=== PATIENT | female | born 1985 | race Caucasian/White ===

== ENCOUNTER 2018-03-16 12:01 | Emergency (ER) | payer OTHER ==
[2018-03-16 12:26] VITALS: BP 163/93
--- NOTE | 2018-03-16 12:37 | UC ---
Lower Extremity/Ankle HPI - HPI Summary HPI Summary: 32 yo c/o right foot pain that started a couple of weeks ago with shooting pain from heel, worse with first step in the morning and after sitting for a while. Patient bought new shoes recently for plantar fasciitis, with more support, and states the heel pain is almost gone, but started having pain pain on the top of the foot near the big toe. Patient has taken ibuprofen, which has given some pain relief - History of Current Complaint Chief Complaint: UCLowerExtremity Stated Complaint: FOOT PAIN Time Seen by Provider: 03/16/18 12:10 Hx Obtained From: Patient Hx Last Menstrual Period: 02/21/18 ?: No Onset/Duration: Sudden Onset, Lasting Days Severity Initially: Moderate Severity Currently: Mild Pain Intensity: 2 Aggravating Factor(s): Standing, Ambulation Alleviating Factor(s): Rest, OTC Meds Able to Bear Weight: Yes - Risk Factors Gout Risk Factors: Negative DVT Risk Factors: Negative Septic Arthritis Risk Factor: Negative - Allergies/Home Medications Allergies/Adverse Reactions: Allergies Allergy/AdvReac Type Severity Reaction Status Date / Time No Known Allergies Allergy Verified 03/16/18 12:16 Home Medications: Home Medications Ibuprofen 1,000 mg PO DAILY PRN 03/16/18 [History Confirmed 03/16/18] PMH/Surg Hx/FS Hx/Imm Hx Previously Healthy: Yes - Surgical History Surgical History: Yes Surgery Procedure, Year, and Place: gallbladder removal- 2003 - Family History Known Family History: Positive: None - Social History Alcohol Use: Rare Substance Use Type: None Smoking Status (MU): Never Smoked Tobacco Review of Systems Constitutional: Negative Skin: Negative Musculoskeletal: Arthralgia, Myalgia All Other Systems Reviewed And Are Negative: Yes Physical Exam - Summary Physical Exam Summary: tenderness along posterior aspect of left calcaneus. Tender along tendon of extensor of the big toe. No soft tissue swelling, no bruising. [place] negative. Triage Information Reviewed: Yes Appearance: Well-Appearing, No Pain Distress, Obese Vital Signs: Initial Vital Signs Temp 98.3 F 03/16/18 12:18 Pulse 87 03/16/18 12:18 Resp 20 03/16/18 12:18 BP 163/93 03/16/18 12:18 Pulse Ox 100 03/16/18 12:18 Vital Signs Reviewed: Yes Eyes: Positive: Conjunctiva Clear ENT: Positive: Hearing grossly normal Neck: Positive: Supple, Nontender Respiratory: Positive: Chest non-tender Cardiovascular: Positive: Pulses Normal, Brisk Capillary Refill Abdomen Description: Positive: Nontender Musculoskeletal: Positive: Strength Intact, ROM Intact, No Edema Lower Extremity Course/Dx - Course Course Of Treatment: patient with tenderness along extensor tendon of first toe on left foot and tenderness along posterior calcaneal aspect 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 Advised to wear closed shoes with heel cup and continue with RICE; exercises for tendinitis /plantar fasciitis given. f/u with primary care in one week, f/u blood pressure readings. - Differential Dx/Diagnosis Provider Diagnoses: elevated BP without history of HTN. Calcaneal apophisitis. Tendinitis Discharge - Sign-Out/Discharge Documenting (check all that apply): Patient Departure All imaging exams completed and their final reports reviewed: No Studies - Discharge Plan Condition: Stable Disposition: HOME Patient Education Materials: Plantar Fasciitis Exercises (GEN), Plantar Fasciitis (ED), Tendinitis (ED) Referrals: No Primary Care Phys,NOPCP [Primary Care Provider] - [facility] [place] [facility] [Outside] - Billing Disposition and Condition Condition: STABLE Disposition: Home
== END 2018-03-16 12:50 | disposition home or self-care (01) ==
LOC: UCEAST 12:01
DX: M92.8 Other specified juvenile osteochondrosis (principal); M77.52 Other enthesopathy of left foot and ankle; R03.0 Elevated blood-pressure reading, without diagnosis of hypertension
CPT/HCPCS: 99201; G0463

== ENCOUNTER 2019-04-15 14:40 | Emergency (ER) | payer OTHER ==
[2019-04-15 15:57] VITALS: BP 158/85
--- NOTE | 2019-04-15 16:10 | UC ---
Throat Pain/Nasal Darryl HPI - HPI Summary HPI Summary: Patient is a 33-year-old female presenting with sore throat and general cold symptoms 2 days. Patient states cold symptoms have mostly resolved but her sore throat remains. Notes painful anterior cervical nodes. Notes painful swallowing. Denies nasal congestion, cough, ear pain. Denies shortness breath and wheezing. Denies fever and chills. Denies nausea, vomiting, diarrhea. - History of Current Complaint Chief Complaint: UCRespiratory Stated Complaint: SORE THROAT Hx Obtained From: Patient Hx Last Menstrual Period: 2 weeks ago Onset/Duration: Sudden Onset Severity: Mild Pain Intensity: 3 Pain Scale Used: 0-10 Numeric - Allergies/Home Medications Allergies/Adverse Reactions: Allergies Allergy/AdvReac Type Severity Reaction Status Date / Time No Known Allergies Allergy Verified 04/15/19 15:57 Home Medications: Home Medications Control* 1 tab PO DAILY 04/15/19 [History Confirmed 04/15/19] D-Methorphan/PE/Acetaminophen [Vicks Dayquil Liquicaps] 2 each PO ONCE PRN 04/15 [History Confirmed 04/15/19] Dm/PE/Acetaminophen/Chlorphenr [[place] Plus Flu Tab Eff] 1 each PO ONCE PRN 04/15/19 [History Confirmed 04/15/19] PMH/Surg Hx/FS Hx/Imm Hx - Surgical History Surgical History: Yes Surgery Procedure, Year, and Place: gallbladder removal- 2003 - Family History Known Family History: Positive: None, Non-Contributory - Social History Alcohol Use: Occasionally Substance Use Type: None Smoking Status (MU): Never Smoked Tobacco Review of Systems All Other Systems Reviewed And Are Negative: Yes Constitutional: Negative: Fever, Chills ENT: Positive: Sore Throat. Negative: Ear Ache, Nasal Discharge, Sinus Congestion, Sinus Pain/Tenderness Respiratory: Positive: Negative. Negative: Shortness Of Breath, Cough Cardiovascular: Positive: Negative. Negative: Palpitations, Chest Pain Gastrointestinal: Positive: Negative. Negative: Vomiting, Nausea Musculoskeletal: Positive: Negative Neurological: Positive: Negative Physical Exam Triage Information Reviewed: Yes Appearance: Well-Appearing, No Pain Distress, Well-Nourished Vital Signs: Initial Vital Signs Temp 98.4 F 04/15/19 15:54 Pulse 76 04/15/19 15:54 Resp 16 04/15/19 15:54 BP 158/85 04/15/19 15:54 Pulse Ox 100 04/15/19 15:54 Lab Results 04/15/19 Range/Units 16:08 Group A Strep Rapid Negative (Negative) Vital Signs Reviewed: Yes Eyes: Positive: Conjunctiva Clear ENT: Positive: Hearing grossly normal, Pharyngeal erythema, TMs normal, Tonsillar swelling - Significant bilateral tonsillar swelling, Tonsillar exudate - Copious amount of tonsillar exudates, Uvula midline. Negative: Nasal congestion, Nasal drainage, Trismus, Muffled voice, Hoarse voice, Sinus tenderness Neck: Positive: Supple, Tenderness @ - Right anterior cervical lymph node, Enlarged Nodes @ - Right anterior cervical lymph nodes, Other: - Patient heavyset with larger neck making it difficult to visualize outward swelling Respiratory Exam: Normal Respiratory: Positive: Lungs clear, Normal breath sounds, No respiratory distress. Negative: Stridor, Wheezing Cardiovascular Exam: Normal Cardiovascular: Positive: RRR Neurological: Positive: Alert Psychological: Positive: Age Appropriate Behavior Skin Exam: Normal Throat Pain/Nasal Course/Dx - Course Course Of Treatment: Patient's rapid strep test negative. I am treating with amoxicillin for possible bacterial infection given significant tonsillar swelling and exudates noted on exam. A throat culture was also sent. Instructed patient to continue with symptomatic treatment and to follow-up with symptoms persist past 10 days. Instructed to go to ED if symptoms worsen including fever and difficulty breathing. Patient voiced understanding and agreed with the treatment plan. - Differential Dx/Diagnosis Provider Diagnosis: Exudative pharyngitis Discharge ED - Sign-Out/Discharge Documenting (check all that apply): Patient Departure All imaging exams completed and their final reports reviewed: No Studies - Discharge Plan Condition: Stable Disposition: HOME Prescriptions: Amoxicillin PO (*) [Amoxicillin 500 MG CAP*] 500 mg PO Q12H #20 cap Patient Education Materials: Pharyngitis (ED) Referrals: [facility] [Outside] - If Needed [facility] [place] [facility] [Outside] - If Needed Additional Instructions: As discussed, you tested negative for strep throat today. Take Amoxicillin as prescribed for the treatment of possible bacterial infection. A throat culture was sent and you will be notified with any results that warrant a change in treatment. You may take ibuprofen and/or tylenol as directed for fever and pain relief. You may use over the counter throat sprays or lozenges for symptomatic relief. Get plenty of rest and fluids. Follow up with your PCP or one of the referrals listed below if symptoms do not resolve within 10 days. Go to the emergency room if symptoms worsen including fever higher than 102 or difficulty breathing. - Billing Disposition and Condition Condition: STABLE Disposition: Home
== END 2019-04-15 16:37 | disposition home or self-care (01) ==
LOC: UCEAST 14:40
DX: J02.9 Acute pharyngitis, unspecified (principal); R59.0 Localized enlarged lymph nodes
CPT/HCPCS: 87070; 87651; 99212; G0463

== ENCOUNTER 2019-08-11 07:24 | Emergency (ER) | payer OTHER ==
[2019-08-11 07:34] VITALS: BP 167/94
[2019-08-11] MEDS ORDERED: Dexamethasone TAB* 4 MG PO ONE (07:45)
--- NOTE | 2019-08-11 07:49 | UC ---
UC General HPI - HPI Summary HPI Summary: Two days of sore throat, getting worse, hard time swallowing liquids but forced herself to have tea and water this morning. Was able to get her BCP down this AM as well. Took ibuprofen 800 mg at 2:00 am. No fever. +chills. No cough. + congestion. No N/V/D. NO sick contacts Meds: REviewed - History of Current Complaint Chief Complaint: UCRespiratory Stated Complaint: SORE THROAT Time Seen by Provider: 08/11/19 07:29 Hx Last Menstrual Period: 07/21/19 Pain Intensity: 5 - Allergy/Home Medications Allergies/Adverse Reactions: Allergies Allergy/AdvReac Type Severity Reaction Status Date / Time No Known Allergies Allergy Verified 08/11/19 07:34 Home Medications: Home Medications Control* 1 tab PO DAILY 04/15/19 [History Confirmed 08/11/19] Amoxicillin PO (*) [Amoxicillin 500 MG CAP*] 500 mg PO Q12H #20 cap 08/11/19 [Rx ] Ibuprofen TAB* [Motrin TAB* 800 MG] 800 mg PO Q6H PRN 08/11/19 [History Confirmed 08/11/19] PMH/Surg Hx/FS Hx/Imm Hx Previously Healthy: Yes - Surgical History Surgical History: Yes Surgery Procedure, Year, and Place: gallbladder removal- 2003 - Family History Known Family History: Positive: None, Non-Contributory - Social History Alcohol Use: Rare Substance Use Type: None Smoking Status (MU): Never Smoked Tobacco Review of Systems All Other Systems Reviewed And Are Negative: Yes Constitutional: Positive: Chills ENT: Positive: Sore Throat, Nasal Discharge Physical Exam Triage Information Reviewed: Yes Appearance: Other: - mildly ill apperaing Vital Signs: Initial Vital Signs Temp 98.0 F 08/11/19 07:30 Pulse 121 08/11/19 07:30 Resp 16 08/11/19 07:30 BP 167/94 08/11/19 07:30 Pulse Ox 97 08/11/19 07:30 ENT: Positive: Pharyngeal erythema, Nasal congestion, TMs normal, Tonsillar exudate Neck: Positive: Supple, Enlarged Nodes @ - anterior cervical chain Respiratory: Positive: Lungs clear, Normal breath sounds Cardiovascular: Positive: RRR, No Murmur Course/Dx - Course Course Of Treatment: This is a 33 year old with sore throat and difficulty swallowing Decadron 8 mg PO given in UC to help with pain and inflammation. No airway compromise/issues Rapid strep: positive Plan Your test was positive for strep throat Start Amoxicillin as prescribed Continue to drink plenty of fluids Ibuprofen as needed as directed for pain/fever If symptoms persist or worsen recommend follow up with PCP or return to urgent care - Diagnoses Provider Diagnosis: Pharyngitis due to group A beta hemolytic Streptococci Discharge ED - Sign-Out/Discharge Documenting (check all that apply): Patient Departure All imaging exams completed and their final reports reviewed: No Studies - Discharge Plan Condition: Fair Disposition: HOME Prescriptions: Amoxicillin PO (*) [Amoxicillin 500 MG CAP*] 500 mg PO Q12H #20 cap Patient Education Materials: Strep Throat (ED) Forms: *Work Release Referrals: No Primary Care Phys,NOPCP [Primary Care Provider] - Additional Instructions: Your test was positive for strep throat Start Amoxicillin as prescribed Continue to drink plenty of fluids Ibuprofen as needed as directed for pain/fever If symptoms persist or worsen recommend follow up with PCP or return to urgent care Your blood pressure is elevated today, please recheck it and if it is still elevated recommend follow up with PCP - Billing Disposition and Condition Condition: FAIR Disposition: Home
== END 2019-08-11 08:00 | disposition home or self-care (01) ==
LOC: UCEAST 07:24
DX: J02.0 Streptococcal pharyngitis (principal); R09.89 Other specified symptoms and signs involving the circulatory and respiratory systems; R68.83 Chills (without fever)
CPT/HCPCS: 87651; 99212; G0463; J8540